=== PATIENT | female | born 1955 ===

== ENCOUNTER 2018-05-03 15:13 | Emergency (ER) | payer BC, SELFPAY ==
[2018-05-03 15:16] VITALS: BP 157/75; PULSE 64; RESP 18; TEMP 36; O2SAT 100; BMI 22.1
[2018-05-03 15:47] LABS: Bacteria Urine None Seen; WBC Urine None Seen (0-5/HPF)
[2018-05-03 15:56] LABS: Amorphous Sediment Urine 2+; Culture Indicated Urine Cult Not Indicated; RBC Urine 0-1/HPF (0-5/HPF)
--- NOTE | 2018-05-03 17:08 | ED.FEMALEGU ---
HPI - Female Genitourinary <CHAVO Avila - Last Filed: 05/03/18 21:43> General Chief complaint: Urogenital-Female Stated complaint: BACK PAIN Time Seen by Provider: 05/03/18 16:34 Source: patient Mode of arrival: ambulatory Limitations: no limitations History of Present Illness HPI Narrative: 62-year-old female with history of hypertension and is a nonsmoker here for complaint of having flank pain and to her left flank over the past 3 days. She was seen in her primary care provider office earlier today and testing showed that she had blood in her urine. She was sent here for further evaluation. She denies seeing blood in her urine. She denies any dysuria or urinary frequency. No fevers no chills. She states that the pain sometimes radiates into her left abdomen. She reports that lying back relieve some of her pain. She denies any trauma to the flank area. Related Data Allergies Allergy/AdvReac Type Severity Reaction Status Date / Time No Known Drug Allergies Allergy Verified 05/03/18 15:21 Review of Systems <CHAVO Avila - Last Filed: 05/03/18 21:43> Constitutional Denies chills, Denies fever(s), Denies lethargy and Denies weakness Eyes Denies change in vision, Denies eye discharge, Denies irritation and Denies loss of vision ENT Ears, Nose, Mouth, and Throat: Denies change in voice, Denies neck pain and Denies sore throat Cardiovascular Denies chest pain, Denies irregular heart rhythm, Denies lightheadedness, Denies palpitations, Denies dyspnea, Denies dyspnea on exertion and Denies orthopnea Respiratory Denies cough, Denies dyspnea, Denies dyspnea on exertion and Denies wheezing Gastrointestinal Gastrointestinal: Denies abdominal pain, Denies change in bowel habits, Denies diarrhea, Denies nausea and Denies vomiting Genitourinary Denies hematuria, Reports flank pain, Denies urinary incontinence and Denies urinary urgency Musculoskeletal Denies neck pain Integumentary/Breasts Denies pruritus, Denies erythema, Denies rash and Denies wounds Neurologic Denies confusion, Denies loss of vision and Denies weakness Psychiatric Denies anxiety, Denies confusion, Denies depression, Denies homicidal ideation and Denies suicidal ideation Endocrine Denies palpitations Hematologic/Lymphatic Denies easy bruising Allergic/Immunologic Denies wheezing Exam <CHAVO Avila - Last Filed: 05/03/18 21:43> Initial Vital Signs Initial Vital Signs: Vital Signs Temperature 96.8 F L 05/03/18 15:16 Pulse Rate 64 05/03/18 15:16 Respiratory Rate 18 05/03/18 15:16 Blood Pressure 157/75 H 05/03/18 15:16 Pulse Oximetry 100 05/03/18 15:16 Const General: cooperative and well developed Nutritional Appearance: well nourished Orientation: alert, awake, oriented x3 and not confused HENMT Mouth: oral mucosae normal and moist mucous membranes Eyes Conjunctivae: conjunctivae normal Sclera: sclerae normal Pupils: PERRL EOM: EOM intact bilaterally Resp Effort & Inspection: normal respiratory effort, able to speak in complete sentences, no respiratory distress and no use of accessory muscles Auscultation: clear to auscultation bilaterally, no rales, no rhonchi and no wheezes Cardio Rate: regular rate Rhythm: regular rhythm Heart Sounds: no click, no gallops, no murmurs and no rubs General: No CVA tenderness Skin General: no rashes or lesions noted, No jaundice and No petechiae Neuro General: alert, oriented x3, gait normal and no focal motor deficits Speech: speech normal <Allen Pathak MD - Last Filed: 05/03/18 22:21> Initial Vital Signs Initial Vital Signs: Vital Signs Temperature 96.8 F L 05/03/18 15:16 Pulse Rate 64 05/03/18 15:16 Respiratory Rate 18 05/03/18 15:16 Blood Pressure 157/75 H 05/03/18 15:16 Pulse Oximetry 100 05/03/18 15:16 Course <CHAVO Avila - Last Filed: 05/03/18 21:43> Orders Ordered: ED Orders 05/03/18 15:32 Urine Microscopic Stat 05/03/18 17:24 CT kidney ureter bladder (KUB) Stat 05/03/18 18:15 Complete Blood Count AUTO DIFF Stat Comprehensive Metabolic Panel Stat Discontinued Medications Sodium Chloride (Normal Saline 0.9%) 1,000 mls @ 1,000 mls/hr IV BOLUS ONE Stop: 05/03/18 18:23 Last Infusion: 05/03/18 19:44 Dose: 0 mls/hr Admin: 05/03/18 18:04 Dose: 1,000 mls/hr Ketorolac Tromethamine (Toradol) 30 mg IV NOW ONE Stop: 05/03/18 17:25 Last Admin: 05/03/18 18:03 Dose: 30 mg Vital Signs - 8 hr 05/03/18 15:16 05/03/18 19:24 Temperature 96.8 F L Pulse Rate 64 61 Respiratory Rate 18 14 Blood Pressure 157/75 H Blood Pressure [Right Arm] 155/92 H Pulse Oximetry 100 100 <Allen Pathak MD - Last Filed: 05/03/18 22:21> Orders Ordered: ED Orders 05/03/18 15:32 Urine Microscopic Stat 05/03/18 17:24 CT kidney ureter bladder (KUB) Stat 05/03/18 18:15 Complete Blood Count AUTO DIFF Stat Comprehensive Metabolic Panel Stat Discontinued Medications Sodium Chloride (Normal Saline 0.9%) 1,000 mls @ 1,000 mls/hr IV BOLUS ONE Stop: 05/03/18 18:23 Last Infusion: 05/03/18 19:44 Dose: 0 mls/hr Admin: 05/03/18 18:04 Dose: 1,000 mls/hr Ketorolac Tromethamine (Toradol) 30 mg IV NOW ONE Stop: 05/03/18 17:25 Last Admin: 05/03/18 18:03 Dose: 30 mg Vital Signs - 8 hr 05/03/18 15:16 05/03/18 19:24 Temperature 96.8 F L Pulse Rate 64 61 Respiratory Rate 18 14 Blood Pressure 157/75 H Blood Pressure [Right Arm] 155/92 H Pulse Oximetry 100 100 MDM - Female Genitourinary <CHAVO Avila - Last Filed: 05/03/18 21:43> Lab Data Result diagrams: 05/03/18 18:15 05/03/18 18:15 Lab Results 05/03/18 05/03/18 05/03/18 Range/Units 15:32 18:15 18:15 WBC 7.0 (4.5-11.0) X10^3/uL RBC 4.68 (4.0-5.2) X10^6/uL Hgb 15.0 (12.0-16.0) g/dL Hct 43.2 (36-46) % MCV 92.4 (80-100) fL MCH 32.0 (26-34) PG MCHC 34.6 (30-36) % RDW 12.8 (11.6-14.8) % Plt Count 156 (150-400) X10^3/uL Neut % (Auto) 56.7 (50-75) % Lymph % (Auto) 31.6 (25-40) % Irion % (Auto) 7.9 (3-14) % Eos % (Auto) 2.9 (2-4) % Baso % (Auto) 0.9 (0-2) % Neut # (Auto) 4000 (8035-0557) /uL Sodium 145 (137-145) mmol/L Potassium 4.0 (3.4-5.1) mmol/L Chloride 106 (98-107) mmol/L Carbon Dioxide 30 (22-32) mmol/L BUN 20 H (7-17) mg/dL Creatinine 0.70 (0.52-1.04) mg/dL Estimated GFR > 60.0 (>60) mL/min BUN/Creatinine Ratio 28.6 H (6-22) Glucose 86 (80-110) mg/dL Calcium 9.6 (8.4-10.2) mg/dL Total Bilirubin 0.7 (0.2-1.3) mg/dL AST 31 (14-36) IU/L ALT 28 (9-52) IU/L Alkaline Phosphatase 44 (38-126) U/L Total Protein 7.9 (6.3-8.2) g/dL Albumin 4.6 (3.5-5.0) g/dL Globulin 3.3 (1.7-4.1) g/dL Albumin/Globulin Ratio 1.4 (1.0-2.8) Urine RBC 0-1/hpf (0-5/HPF) Urine WBC None seen (0-5/HPF) Amorphous Sediment 2+ Urine Bacteria None seen (None) Ur Culture Indicated? Cult not indicated Micro UA Comment Not Reportable Urine Dip Bedside Urine Glucose Negative Bedside Urine Bilirubin - Negative Bedside Urine Ketone - Negative Urine Specific [place] 1.015 Bedside Urine Occult Blood + Bedside Urine pH 7.0 Bedside Urine Protein - Negative Bedside Urine Urobilinogen - Negative Bedside Urine Nitrite - Negative Bedside Urine Leukocytes - Negative Esterase Imaging Data CT scan - abdomen: Radiologist's impression: [address] [address] [address] Scan Report Signed Patient: JOSE ESPARZA MR#: [id number] : 1955 Acct:[id number] Age/Sex: 62 / F Date of Service: 05/03/18 Loc: ED Accession Number: [id number] Procedure: CT kidney ureter bladder (KUB) Ordering Provider: Washington Fernandes PROCEDURE: CT KIDNEY URETER BLADDER (KUB) INDICATIONS: Pain in left flank with blood in urine TECHNIQUE: Noncontrast 5 mm thick sections acquired from the diaphragms to the symphysis. 5 mm thick coronal and sagittal reformats were then performed. For radiation dose reduction, the following was used: automated exposure control, adjustment of mA and/or kV according to patient size. COMPARISON: None. FINDINGS: Image quality: Excellent. Lung bases: Lung bases are clear. Heart size is normal. Urinary system: Both kidneys are normal in size. 2 mm nonobstructing stone is seen in lower pole left kidney. No hydronephrosis or perinephric fat stranding. Both ureters appear non-dilated throughout their expected courses. Bladder wall thickness is normal; no calcified bladder stones. Other solid organs: Liver is normal in size. Gallbladder is within normal limits. Pancreas is normal in contours. Spleen is normal in size. No adrenal nodules. Peritoneum and bowel: Unenhanced bowel loops demonstrate normal wall thickness and caliber. No free fluid or air. Significant amount of fecal matter is seen throughout the colon suggestive of constipation. Appendix is visualized and is within normal limits. Nodes and vessels: No retroperitoneal or mesenteric adenopathy by size criteria. Aorta and inferior vena cava are normal in caliber. Abdominal wall: No ventral hernias. Pelvis: No free pelvic fluid. No inguinal hernias or adenopathy. Bones: No suspicious bony lesions. No vertebral body compression fractures. IMPRESSION: 1. Tiny 2 mm nonobstructing left renal calculus. No obstructing renal stone or hydronephrosis. Normal appearing urinary bladder. 2. Constipation. No evidence of bowel structure no gross free air. Normal appendix. Dictated by: Alexy Huerta M.D. on 05/03/2018 at 18:23 Approved by: Alexy Huerta M.D. on 05/03/2018 at 18:27 [facility] Narrative Medical decision making narrative: KUB CT was obtained and shows a small nonobstructing 2 mm stone to the left kidney. Urinalysis indicates positive RBCs no signs of urinary tract infection. CBC and Chem panel were obtained were unremarkable. Differential includes kidney stone that she has already passed and idiopathic hematuria. Lab follow up with primary care provider later this week for re-evaluation. Tylenol Motrin as needed for any discomfort. For any worsening symptoms return to the emergency room. <Allen Pathak MD - Last Filed: 05/03/18 22:21> Lab Data Lab Results 05/03/18 05/03/18 05/03/18 Range/Units 15:32 18:15 18:15 WBC 7.0 (4.5-11.0) X10^3/uL RBC 4.68 (4.0-5.2) X10^6/uL Hgb 15.0 (12.0-16.0) g/dL Hct 43.2 (36-46) % MCV 92.4 (80-100) fL MCH 32.0 (26-34) PG MCHC 34.6 (30-36) % RDW 12.8 (11.6-14.8) % Plt Count 156 (150-400) X10^3/uL Neut % (Auto) 56.7 (50-75) % Lymph % (Auto) 31.6 (25-40) % [place]ion % (Auto) 7.9 (3-14) % Eos % (Auto) 2.9 (2-4) % Baso % (Auto) 0.9 (0-2) % Neut # (Auto) 4000 (0815-2189) /uL Sodium 145 (137-145) mmol/L Potassium 4.0 (3.4-5.1) mmol/L Chloride 106 (98-107) mmol/L Carbon Dioxide 30 (22-32) mmol/L BUN 20 H (7-17) mg/dL Creatinine 0.70 (0.52-1.04) mg/dL Estimated GFR > 60.0 (>60) mL/min BUN/Creatinine Ratio 28.6 H (6-22) Glucose 86 (80-110) mg/dL Calcium 9.6 (8.4-10.2) mg/dL Total Bilirubin 0.7 (0.2-1.3) mg/dL AST 31 (14-36) IU/L ALT 28 (9-52) IU/L Alkaline Phosphatase 44 (38-126) U/L Total Protein 7.9 (6.3-8.2) g/dL Albumin 4.6 (3.5-5.0) g/dL Globulin 3.3 (1.7-4.1) g/dL Albumin/Globulin Ratio 1.4 (1.0-2.8) Urine RBC 0-1/hpf (0-5/HPF) Urine WBC None seen (0-5/HPF) Amorphous Sediment 2+ Urine Bacteria None seen (None) Ur Culture Indicated? Cult not indicated Micro UA Comment Not Reportable Urine Dip Bedside Urine Glucose Negative Bedside Urine Bilirubin - Negative Bedside Urine Ketone - Negative Urine Specific [place] 1.015 Bedside Urine Occult Blood + Bedside Urine pH 7.0 Bedside Urine Protein - Negative Bedside Urine Urobilinogen - Negative Bedside Urine Nitrite - Negative Bedside Urine Leukocytes - Negative Esterase Discharge Plan Departure Patient Disposition: Home Clinical Impression: Acute left flank pain Discharge Date/Time: 05/03/18 19:45 Interventions: ED Discharge Assessment Last Done: 05/03/18 19:45 Instructions: DI for Flank Pain Activity Restrictions/Additional Instructions: Laboratory results today were unremarkable. CT of the abdomen shows a small nonobstructing stone to the left kidney that is not causing to pain. Signs and symptoms are suspect for you already passing a stone. Use [id number] Tylenol or Motrin as needed for discomfort. Follow up with her primary care provider later this week for re-evaluation. For any worsening symptoms return to the emergency room. Referrals: [facility] [Provider Group] <Allen Pathak MD - Last Filed: 05/03/18 22:21> Cosign ED Attending Petey Attestation: I was present in the ER at the time of this patient's evaluation. I was available for verbal consultation or to see the patient directly if need be. I agree with the assessment and treatment plan.
--- NOTE | 2018-05-03 17:24 | DI.CT.S_ITS ---
PROCEDURE: CT KIDNEY URETER BLADDER (KUB) INDICATIONS: Pain in left flank with blood in urine TECHNIQUE: Noncontrast 5 mm thick sections acquired from the diaphragms to the symphysis. 5 mm thick coronal and sagittal reformats were then performed. For radiation dose reduction, the following was used: automated exposure control, adjustment of mA and/or kV according to patient size. COMPARISON: None. FINDINGS: Image quality: Excellent. Lung bases: Lung bases are clear. Heart size is normal. Urinary system: Both kidneys are normal in size. 2 mm nonobstructing stone is seen in lower pole left kidney. No hydronephrosis or perinephric fat stranding. Both ureters appear non-dilated throughout their expected courses. Bladder wall thickness is normal; no calcified bladder stones. Other solid organs: Liver is normal in size. Gallbladder is within normal limits. Pancreas is normal in contours. Spleen is normal in size. No adrenal nodules. Peritoneum and bowel: Unenhanced bowel loops demonstrate normal wall thickness and caliber. No free fluid or air. Significant amount of fecal matter is seen throughout the colon suggestive of constipation. Appendix is visualized and is within normal limits. Nodes and vessels: No retroperitoneal or mesenteric adenopathy by size criteria. Aorta and inferior vena cava are normal in caliber. Abdominal wall: No ventral hernias. Pelvis: No free pelvic fluid. No inguinal hernias or adenopathy. Bones: No suspicious bony lesions. No vertebral body compression fractures. IMPRESSION: 1. Tiny 2 mm nonobstructing left renal calculus. No obstructing renal stone or hydronephrosis. Normal appearing urinary bladder. 2. Constipation. No evidence of bowel structure no gross free air. Normal appendix. Dictated by: Alexy Huerta M.D. on 05/03/2018 at 18:23 Approved by: Alexy Huerta M.D. on 05/03/2018 at 18:27
[2018-05-03] MEDS: KETOROLAC 60 MG/2 ML VIAL 30 MG IV (18:03)
[2018-05-03] MEDS: SODIUM CHLORIDE 0.9% 1,000 ML 1000 ML IV (18:04)
[2018-05-03 18:23] LABS: Add Manual Diff / Slide Review NO; Basophils Percent Auto 0.9 % (0-2); Eosinophils Percent Auto 2.9 % (2-4); Hematocrit 43.2 % (36-46); Lymphocytes Percent Auto 31.6 % (25-40); Mean Corpuscular HGB Conc 34.6 % (30-36); Mean Corpuscular Volume 92.4 fL (80-100); Monocytes Percent Auto 7.9 % (3-14); Neutrophils Absolute Auto 4000 /uL (3000-5900); Neutrophils Percent Auto 56.7 % (50-75); Platelet Count 156 X10^3/uL (150-400); Red Blood Cell Count 4.68 X10^6/uL (4.0-5.2); Red Cell Distribution Width 12.8 % (11.6-14.8)
[2018-05-03 18:33] LABS: Alanine Aminotransferase 28 IU/L (9-52); Albumin 4.6 g/dL (3.5-5.0); Albumin Globulin Ratio 1.4 (1.0-2.8); Alkaline Phosphatase 44 U/L (38-126); Aspartate Aminotransferase 31 IU/L (14-36); BUN Creatinine Ratio 28.6 (6-22); Bilirubin Total 0.7 mg/dL (0.2-1.3); Blood Urea Nitrogen 20 mg/dL (7-17); Calcium 9.6 mg/dL (8.4-10.2); Carbon Dioxide 30 mmol/L (22-32); Chloride 106 mmol/L (98-107); Estimated Glomerular Filt Rate > 60.0 mL/min (>60); Globulin 3.3 g/dL (1.7-4.1); Glucose 86 mg/dL (80-110); HEMOLYSIS 22 (0-50); Sodium 145 mmol/L (137-145); Total Protein 7.9 g/dL (6.3-8.2)
--- NOTE | 2018-05-03 19:00 | ED_ITS ---
HPI - Female Genitourinary <CHAVO Avila - Last Filed: 05/03/18 21:43> General Chief complaint: Urogenital-Female Stated complaint: BACK PAIN Time Seen by Provider: 05/03/18 16:34 Source: patient Mode of arrival: ambulatory Limitations: no limitations History of Present Illness HPI Narrative: 62-year-old female with history of hypertension and is a nonsmoker here for complaint of having flank pain and to her left flank over the past 3 days. She was seen in her primary care provider office earlier today and testing showed that she had blood in her urine. She was sent here for further evaluation. She denies seeing blood in her urine. She denies any dysuria or urinary frequency. No fevers no chills. She states that the pain sometimes radiates into her left abdomen. She reports that lying back relieve some of her pain. She denies any trauma to the flank area. Related Data Allergies Allergy/AdvReac Type Severity Reaction Status Date / Time No Known Drug Allergies Allergy Verified 05/03/18 15:21 Review of Systems <CHAVO Avila - Last Filed: 05/03/18 21:43> Constitutional Denies chills, Denies fever(s), Denies lethargy and Denies weakness Eyes Denies change in vision, Denies eye discharge, Denies irritation and Denies loss of vision ENT Ears, Nose, Mouth, and Throat: Denies change in voice, Denies neck pain and Denies sore throat Cardiovascular Denies chest pain, Denies irregular heart rhythm, Denies lightheadedness, Denies palpitations, Denies dyspnea, Denies dyspnea on exertion and Denies orthopnea Respiratory Denies cough, Denies dyspnea, Denies dyspnea on exertion and Denies wheezing Gastrointestinal Gastrointestinal: Denies abdominal pain, Denies change in bowel habits, Denies diarrhea, Denies nausea and Denies vomiting Genitourinary Denies hematuria, Reports flank pain, Denies urinary incontinence and Denies urinary urgency Musculoskeletal Denies neck pain Integumentary/Breasts Denies pruritus, Denies erythema, Denies rash and Denies wounds Neurologic Denies confusion, Denies loss of vision and Denies weakness Psychiatric Denies anxiety, Denies confusion, Denies depression, Denies homicidal ideation and Denies suicidal ideation Endocrine Denies palpitations Hematologic/Lymphatic Denies easy bruising Allergic/Immunologic Denies wheezing Exam <CHAVO Avila - Last Filed: 05/03/18 21:43> Initial Vital Signs Initial Vital Signs: Vital Signs Temperature 96.8 F L 05/03/18 15:16 Pulse Rate 64 05/03/18 15:16 Respiratory Rate 18 05/03/18 15:16 Blood Pressure 157/75 H 05/03/18 15:16 Pulse Oximetry 100 05/03/18 15:16 Const General: cooperative and well developed Nutritional Appearance: well nourished Orientation: alert, awake, oriented x3 and not confused HENMT Mouth: oral mucosae normal and moist mucous membranes Eyes Conjunctivae: conjunctivae normal Sclera: sclerae normal Pupils: PERRL EOM: EOM intact bilaterally Resp Effort & Inspection: normal respiratory effort, able to speak in complete sentences, no respiratory distress and no use of accessory muscles Auscultation: clear to auscultation bilaterally, no rales, no rhonchi and no wheezes Cardio Rate: regular rate Rhythm: regular rhythm Heart Sounds: no click, no gallops, no murmurs and no rubs General: No CVA tenderness Skin General: no rashes or lesions noted, No jaundice and No petechiae Neuro General: alert, oriented x3, gait normal and no focal motor deficits Speech: speech normal <Allen Pathak MD - Last Filed: 05/03/18 22:21> Initial Vital Signs Initial Vital Signs: Vital Signs Temperature 96.8 F L 05/03/18 15:16 Pulse Rate 64 05/03/18 15:16 Respiratory Rate 18 05/03/18 15:16 Blood Pressure 157/75 H 05/03/18 15:16 Pulse Oximetry 100 05/03/18 15:16 Course <CHAVO Avila - Last Filed: 05/03/18 21:43> Orders Ordered: ED Orders 05/03/18 15:32 Urine Microscopic Stat 05/03/18 17:24 CT kidney ureter bladder (KUB) Stat 05/03/18 18:15 Complete Blood Count AUTO DIFF Stat Comprehensive Metabolic Panel Stat Discontinued Medications Sodium Chloride (Normal Saline 0.9%) 1,000 mls @ 1,000 mls/hr IV BOLUS ONE Stop: 05/03/18 18:23 Last Infusion: 05/03/18 19:44 Dose: 0 mls/hr Admin: 05/03/18 18:04 Dose: 1,000 mls/hr Ketorolac Tromethamine (Toradol) 30 mg IV NOW ONE Stop: 05/03/18 17:25 Last Admin: 05/03/18 18:03 Dose: 30 mg Vital Signs - 8 hr 05/03/18 15:16 05/03/18 19:24 Temperature 96.8 F L Pulse Rate 64 61 Respiratory Rate 18 14 Blood Pressure 157/75 H Blood Pressure [Right Arm] 155/92 H Pulse Oximetry 100 100 <Allen Pathak MD - Last Filed: 05/03/18 22:21> Orders Ordered: ED Orders 05/03/18 15:32 Urine Microscopic Stat 05/03/18 17:24 CT kidney ureter bladder (KUB) Stat 05/03/18 18:15 Complete Blood Count AUTO DIFF Stat Comprehensive Metabolic Panel Stat Discontinued Medications Sodium Chloride (Normal Saline 0.9%) 1,000 mls @ 1,000 mls/hr IV BOLUS ONE Stop: 05/03/18 18:23 Last Infusion: 05/03/18 19:44 Dose: 0 mls/hr Admin: 05/03/18 18:04 Dose: 1,000 mls/hr Ketorolac Tromethamine (Toradol) 30 mg IV NOW ONE Stop: 05/03/18 17:25 Last Admin: 05/03/18 18:03 Dose: 30 mg Vital Signs - 8 hr 05/03/18 15:16 05/03/18 19:24 Temperature 96.8 F L Pulse Rate 64 61 Respiratory Rate 18 14 Blood Pressure 157/75 H Blood Pressure [Right Arm] 155/92 H Pulse Oximetry 100 100 MDM - Female Genitourinary <CHAVO Avila - Last Filed: 05/03/18 21:43> Lab Data Result diagrams: 05/03/18 18:15 05/03/18 18:15 Lab Results 05/03/18 05/03/18 05/03/18 Range/Units 15:32 18:15 18:15 WBC 7.0 (4.5-11.0) X10^3/uL RBC 4.68 (4.0-5.2) X10^6/uL Hgb 15.0 (12.0-16.0) g/dL Hct 43.2 (36-46) % MCV 92.4 (80-100) fL MCH 32.0 (26-34) PG MCHC 34.6 (30-36) % RDW 12.8 (11.6-14.8) % Plt Count 156 (150-400) X10^3/uL Neut % (Auto) 56.7 (50-75) % Lymph % (Auto) 31.6 (25-40) % [place] % (Auto) 7.9 (3-14) % Eos % (Auto) 2.9 (2-4) % Baso % (Auto) 0.9 (0-2) % Neut # (Auto) 4000 (1121-5698) /uL Sodium 145 (137-145) mmol/L Potassium 4.0 (3.4-5.1) mmol/L Chloride 106 (98-107) mmol/L Carbon Dioxide 30 (22-32) mmol/L BUN 20 H (7-17) mg/dL Creatinine 0.70 (0.52-1.04) mg/dL Estimated GFR > 60.0 (>60) mL/min BUN/Creatinine Ratio 28.6 H (6-22) Glucose 86 (80-110) mg/dL Calcium 9.6 (8.4-10.2) mg/dL Total Bilirubin 0.7 (0.2-1.3) mg/dL AST 31 (14-36) IU/L ALT 28 (9-52) IU/L Alkaline Phosphatase 44 (38-126) U/L Total Protein 7.9 (6.3-8.2) g/dL Albumin 4.6 (3.5-5.0) g/dL Globulin 3.3 (1.7-4.1) g/dL Albumin/Globulin Ratio 1.4 (1.0-2.8) Urine RBC 0-1/hpf (0-5/HPF) Urine WBC None seen (0-5/HPF) Amorphous Sediment 2+ Urine Bacteria None seen (None) Ur Culture Indicated? Cult not indicated Micro UA Comment Not Reportable Urine Dip Bedside Urine Glucose Negative Bedside Urine Bilirubin - Negative Bedside Urine Ketone - Negative Urine Specific [place] 1.015 Bedside Urine Occult Blood + Bedside Urine pH 7.0 Bedside Urine Protein - Negative Bedside Urine Urobilinogen - Negative Bedside Urine Nitrite - Negative Bedside Urine Leukocytes - Negative Esterase Imaging Data CT scan - abdomen: Radiologist's impression: [address] [address] [address] Scan Report Signed Patient: JOSE ESPARZA MR#: [id number] : 1955 Acct:[id number] Age/Sex: 62 / F Date of Service: 05/03/18 Loc: ED Accession Number: [id number] Procedure: CT kidney ureter bladder (KUB) Ordering Provider: Washington Fernandes PROCEDURE: CT KIDNEY URETER BLADDER (KUB) INDICATIONS: Pain in left flank with blood in urine TECHNIQUE: Noncontrast 5 mm thick sections acquired from the diaphragms to the symphysis. 5 mm thick coronal and sagittal reformats were then performed. For radiation dose reduction, the following was used: automated exposure control, adjustment of mA and/or kV according to patient size. COMPARISON: None. FINDINGS: Image quality: Excellent. Lung bases: Lung bases are clear. Heart size is normal. Urinary system: Both kidneys are normal in size. 2 mm nonobstructing stone is seen in lower pole left kidney. No hydronephrosis or perinephric fat stranding. Both ureters appear non-dilated throughout their expected courses. Bladder wall thickness is normal; no calcified bladder stones. Other solid organs: Liver is normal in size. Gallbladder is within normal limits. Pancreas is normal in contours. Spleen is normal in size. No adrenal nodules. Peritoneum and bowel: Unenhanced bowel loops demonstrate normal wall thickness and caliber. No free fluid or air. Significant amount of fecal matter is seen throughout the colon suggestive of constipation. Appendix is visualized and is within normal limits. Nodes and vessels: No retroperitoneal or mesenteric adenopathy by size criteria. Aorta and inferior vena cava are normal in caliber. Abdominal wall: No ventral hernias. Pelvis: No free pelvic fluid. No inguinal hernias or adenopathy. Bones: No suspicious bony lesions. No vertebral body compression fractures. IMPRESSION: 1. Tiny 2 mm nonobstructing left renal calculus. No obstructing renal stone or hydronephrosis. Normal appearing urinary bladder. 2. Constipation. No evidence of bowel structure no gross free air. Normal appendix. Dictated by: Alexy Huerta M.D. on 05/03/2018 at 18:23 Approved by: Alexy Huerta M.D. on 05/03/2018 at 18:27 [facility] Narrative Medical decision making narrative: KUB CT was obtained and shows a small nonobstructing 2 mm stone to the left kidney. Urinalysis indicates positive RBCs no signs of urinary tract infection. CBC and Chem panel were obtained were unremarkable. Differential includes kidney stone that she has already passed and idiopathic hematuria. Lab follow up with primary care provider later this week for re-evaluation. Tylenol Motrin as needed for any discomfort. For any worsening symptoms return to the emergency room. <Allen Pathak MD - Last Filed: 05/03/18 22:21> Lab Data Lab Results 05/03/18 05/03/18 05/03/18 Range/Units 15:32 18:15 18:15 WBC 7.0 (4.5-11.0) X10^3/uL RBC 4.68 (4.0-5.2) X10^6/uL Hgb 15.0 (12.0-16.0) g/dL Hct 43.2 (36-46) % MCV 92.4 (80-100) fL MCH 32.0 (26-34) PG MCHC 34.6 (30-36) % RDW 12.8 (11.6-14.8) % Plt Count 156 (150-400) X10^3/uL Neut % (Auto) 56.7 (50-75) % Lymph % (Auto) 31.6 (25-40) % [place] % (Auto) 7.9 (3-14) % Eos % (Auto) 2.9 (2-4) % Baso % (Auto) 0.9 (0-2) % Neut # (Auto) 4000 (4626-8346) /uL Sodium 145 (137-145) mmol/L Potassium 4.0 (3.4-5.1) mmol/L Chloride 106 (98-107) mmol/L Carbon Dioxide 30 (22-32) mmol/L BUN 20 H (7-17) mg/dL Creatinine 0.70 (0.52-1.04) mg/dL Estimated GFR > 60.0 (>60) mL/min BUN/Creatinine Ratio 28.6 H (6-22) Glucose 86 (80-110) mg/dL Calcium 9.6 (8.4-10.2) mg/dL Total Bilirubin 0.7 (0.2-1.3) mg/dL AST 31 (14-36) IU/L ALT 28 (9-52) IU/L Alkaline Phosphatase 44 (38-126) U/L Total Protein 7.9 (6.3-8.2) g/dL Albumin 4.6 (3.5-5.0) g/dL Globulin 3.3 (1.7-4.1) g/dL Albumin/Globulin Ratio 1.4 (1.0-2.8) Urine RBC 0-1/hpf (0-5/HPF) Urine WBC None seen (0-5/HPF) Amorphous Sediment 2+ Urine Bacteria None seen (None) Ur Culture Indicated? Cult not indicated Micro UA Comment Not Reportable Urine Dip Bedside Urine Glucose Negative Bedside Urine Bilirubin - Negative Bedside Urine Ketone - Negative Urine Specific [place] 1.015 Bedside Urine Occult Blood + Bedside Urine pH 7.0 Bedside Urine Protein - Negative Bedside Urine Urobilinogen - Negative Bedside Urine Nitrite - Negative Bedside Urine Leukocytes - Negative Esterase Discharge Plan Departure Patient Disposition: Home Clinical Impression: Acute left flank pain Discharge Date/Time: 05/03/18 19:45 Interventions: ED Discharge Assessment Last Done: 05/03/18 19:45 Instructions: DI for Flank Pain Activity Restrictions/Additional Instructions: Laboratory results today were unremarkable. CT of the abdomen shows a small nonobstructing stone to the left kidney that is not causing to pain. Signs and symptoms are suspect for you already passing a stone. Use [id number] Tylenol or Motrin as needed for discomfort. Follow up with her primary care provider later this week for re-evaluation. For any worsening symptoms return to the emergency room. Referrals: [facility] [Provider Group] <Allen Pathak MD - Last Filed: 05/03/18 22:21> Cosign ED Attending Petey Attestation: I was present in the ER at the time of this patient's evaluation. I was available for verbal consultation or to see the patient directly if need be. I agree with the assessment and treatment plan.
[2018-05-03 19:24] VITALS: BP 155/92; PULSE 61; RESP 14; O2SAT 100
== END 2018-05-03 19:45 | disposition home or self-care (01) ==
PROVIDERS: Emergency Provider Nurse Practitioner Family
DX: R10.9 Unspecified abdominal pain (principal)
CPT/HCPCS: 36591; 74176; 80053; 81003; 81015; 85025; 96361; 96374; 99283; 99284; J1885